=== PATIENT | male | born 1950 | race Asian ===

== ENCOUNTER 2019-05-23 08:59 | Emergency (ER) | payer BC ==
[~2019-05-23] VITALS: Ht 167.6 cm; Wt 74.8 kg
[2019-05-23 09:23] VITALS: BP 138/81; TEMP 97.7
[2019-05-23] MEDS ORDERED: BETIMOL 0.5% OPH5 ML OU (10:25)
[2019-05-23] MEDS ORDERED: XALATAN EYE DROPS OD (10:26)
[2019-05-23 11:38] VITALS: PULSE 68
== END 2019-05-23 11:38 | disposition home or self-care (01) ==
LOC: COL.ER 08:59
DX: S01.112A Laceration without foreign body of left eyelid and periocular area, initial encounter (principal); Z23 Encounter for immunization; W00.0XXA Fall on same level due to ice and snow, initial encounter; Y92.009 Unspecified place in unspecified non-institutional (private) residence as the place of occurrence of the external cause